=== PATIENT | male | born 1995 | race African-American/Black ===

== ENCOUNTER 2017-09-03 15:03 | Emergency (ER) | payer OTHER ==
[~2017-09-03] VITALS: Ht 175.3 cm; Wt 81.0 kg
[2017-09-03 15:16] VITALS: BP 138/71; PULSE 90; RESP 18; TEMP 99; O2SAT 98
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
[2017-09-03] MEDS ORDERED: BACL10TA PO (16:52)
[2017-09-03] MEDS ORDERED: DICL75TA PO (16:52)
== END 2017-09-03 17:15 | disposition home or self-care (01) ==
LOC: NEPD 15:03
DX: S16.1XXA Strain of muscle, fascia and tendon at neck level, initial encounter (principal); S29.012A Strain of muscle and tendon of back wall of thorax, initial encounter; V89.2XXA Person injured in unspecified motor-vehicle accident, traffic, initial encounter; Y92.488 Other paved roadways as the place of occurrence of the external cause
CPT/HCPCS: 72072; 72125; 99284